=== PATIENT | female | born 1955 | race Caucasian/White ===

== ENCOUNTER 2016-07-01 05:45 | Day surgery (SDC) | payer BC ==
--- NOTE | ~2016-07-01 | EGD ---
EGD REPORT [facility] [address] [address] NAME: BRITTANY DWYER : [birth year] STATUS : [facility]#: [id number] AGE: 61 ADM/REG DATE : 07/01/16 MR#: [id number] REPORT SERV DATE: 07/07/16 DICTATED BY: ROB ZULUAGA DATE: 07/07/16 REPORT STATUS : Draft [facility]ANS[facility]IBED [facility]: [facility] DATE: 07/07/16 [facility] Patient Name: Brittany Dwyer Date of : 1955 Attending MD: ROB ZULUAGA MD Procedure Date No Time: 07/01/2016 Procedure: Colonoscopy Indications: High risk colon cancer surveillance: Personal history of colonic polyps, Last colonoscopy: March 2014 Referring MD: ALISA MONTEZ Medicines: See the Anesthesia note for documentation of the administered medications Complications: No immediate complications. Procedure: Pre-Anesthesia Assessment: - ASA Grade Assessment: III - A patient with severe systemic disease. After I obtained informed consent, the scope was passed under direct vision. Throughout the procedure, the patient's blood pressure, pulse, and oxygen saturations were monitored continuously. The [facility] H190L [id number] was introduced through the anus and advanced to the cecum, identified by appendiceal orifice and ileocecal valve. The colonoscopy was performed without difficulty. The patient tolerated the procedure well. The quality of the bowel preparation was fair. Findings: The perianal and digital rectal examinations were normal. Internal hemorrhoids were found during retroflexion and were small. Impression: - Internal hemorrhoids. Recommendation: - Patient has a contact number available for emergencies. The signs and symptoms of potential delayed complications were discussed with the patient. Return to normal activities tomorrow. Written discharge instructions were provided to the patient. - Regular diet. - Continue present medications. - Repeat colonoscopy in 1 year because the bowel preparation was suboptimal. Procedure Code(s): --- Professional --- 37968, Colonoscopy, flexible, proximal to splenic flexure; diagnostic, with or without collection of EGD REPORT [facility] [address] [place]. [address] NAME: BRITTANY DWYER : [birth year] STATUS : [facility] PAT#: [id number] AGE: 61 ADM/REG DATE : 07/01/16 MR#: [id number] REPORT SERV DATE: 07/07/16 DICTATED BY: ROB ZULUAGA DATE: 07/07/16 REPORT STATUS : Draft TRANSCRIBED BY: [employer] DATE: 07/07/16 specimen(s) by brushing or washing, with or without colon decompression (separate procedure) Diagnosis Code(s): --- Professional --- K64.8, Other hemorrhoids Z86.010, Personal history of colonic polyps CPT copyright 2013 [employer]. All rights reserved. The codes documented in this report are preliminary and upon neonatal icu coordinator review may be revised to meet current compliance requirements. Rob Zuluaga MD ROB ZULUAGA MD 07/01/2016 7:23 AM This report has been signed electronically. Number of Addenda: 0 Note Initiated On: 07/01/2016 7:04 AM Scope Withdrawal Time 0 hours 9 minutes 56 seconds [address] [place] [address]
--- NOTE | ~2016-07-01 | EGD ---
EGD REPORT [facility] [address] [address] NAME: BRITTANY DWYER : [birth year] STATUS : [facility] PAT#: [id number] AGE: 61 ADM/REG DATE : 07/01/16 MR#: [id number] REPORT SERV DATE: 07/01/16 DICTATED BY: ROB ZULUAGA DATE: 07/01/16 REPORT STATUS : Draft TRANSCRIBED BY: [employer] DATE: 07/01/16 [facility] Patient Name: Brittany Dwyer Date of : 1955 Attending MD: ROB ZULUAGA MD Procedure Date No Time: 07/01/2016 Procedure: Colonoscopy Indications: High risk colon cancer surveillance: Personal history of colonic polyps, Last colonoscopy: March 2014 Referring MD: ALISA MONTEZ Medicines: See the Anesthesia note for documentation of the administered medications Complications: No immediate complications. Procedure: Pre-Anesthesia Assessment: - ASA Grade Assessment: III - A patient with severe systemic disease. After I obtained informed consent, the scope was passed under direct vision. Throughout the procedure, the patient's blood pressure, pulse, and oxygen saturations were monitored continuously. The [facility] H190L [id number] was introduced through the anus and advanced to the cecum, identified by appendiceal orifice and ileocecal valve. The colonoscopy was performed without difficulty. The patient tolerated the procedure well. The quality of the bowel preparation was fair. Findings: The perianal and digital rectal examinations were normal. Internal hemorrhoids were found during retroflexion and were small. Impression: - Internal hemorrhoids. Recommendation: - Patient has a contact number available for emergencies. The signs and symptoms of potential delayed complications were discussed with the patient. Return to normal activities tomorrow. Written discharge instructions were provided to the patient. - Regular diet. - Continue present medications. - Repeat colonoscopy in 1 year because the bowel preparation was suboptimal. Procedure Code(s): --- Professional --- 09130, Colonoscopy, flexible, proximal to splenic flexure; diagnostic, with or without collection of EGD REPORT [facility] [address] [place]. [address] NAME: BRITTANY DWYER : [birth year] STATUS : [facility] PAT#: [id number] AGE: 61 ADM/REG DATE : 07/01/16 MR#: [id number] REPORT SERV DATE: 07/01/16 DICTATED BY: ROB ZULUAGA DATE: 07/01/16 REPORT STATUS : Draft TRANSCRIBED BY: [employer] DATE: 07/01/16 specimen(s) by brushing or washing, with or without colon decompression (separate procedure) Diagnosis Code(s): --- Professional --- K64.8, Other hemorrhoids Z86.010, Personal history of colonic polyps CPT copyright 2013 [employer]. All rights reserved. The codes documented in this report are preliminary and upon music writer review may be revised to meet current compliance requirements. Rob Zuluaga MD ROB ZULUAGA MD 07/01/2016 7:23 AM This report has been signed electronically. Number of Addenda: 0 Note Initiated On: 07/01/2016 7:04 AM Scope Withdrawal Time 0 hours 9 minutes 56 seconds [address] [facility] [facility] [place] [address]
--- NOTE | ~2016-07-01 | EGD ---
EGD REPORT [facility] [address] [address] NAME: BRITTANY DWYER : [birth year] STATUS : [facility]#: [id number] AGE: 61 ADM/REG DATE : 07/01/16 MR#: [id number] REPORT SERV DATE: 07/21/16 DICTATED BY: ROB ZULUAGA DATE: 07/21/16 REPORT STATUS : Draft [facility]ANSCRIBED [facility]: [facility] DATE: 07/21/16 [facility] Patient Name: Brittany Dwyer Date of : 1955 Attending MD: ROB ZULUAGA MD Procedure Date No Time: 07/01/2016 Procedure: Colonoscopy Indications: High risk colon cancer surveillance: Personal history of colonic polyps, Last colonoscopy: March 2014 Referring MD: ALISA MONTEZ Medicines: See the Anesthesia note for documentation of the administered medications Complications: No immediate complications. Procedure: Pre-Anesthesia Assessment: - ASA Grade Assessment: III - A patient with severe systemic disease. After I obtained informed consent, the scope was passed under direct vision. Throughout the procedure, the patient's blood pressure, pulse, and oxygen saturations were monitored continuously. The [facility] H190L [id number] was introduced through the anus and advanced to the cecum, identified by appendiceal orifice and ileocecal valve. The colonoscopy was performed without difficulty. The patient tolerated the procedure well. The quality of the bowel preparation was fair. Findings: The perianal and digital rectal examinations were normal. Internal hemorrhoids were found during retroflexion and were small. Impression: - Internal hemorrhoids. Recommendation: - Patient has a contact number available for emergencies. The signs and symptoms of potential delayed complications were discussed with the patient. Return to normal activities tomorrow. Written discharge instructions were provided to the patient. - Regular diet. - Continue present medications. - Repeat colonoscopy in 1 year because the bowel preparation was suboptimal. Procedure Code(s): --- Professional --- 88027, Colonoscopy, flexible, proximal to splenic flexure; diagnostic, with or without collection of EGD REPORT [facility] [address] [place]. [address] NAME: BRITTANY DWYER : [birth year] STATUS : [facility] PAT#: [id number] AGE: 61 ADM/REG DATE : 07/01/16 MR#: [id number] REPORT SERV DATE: 07/21/16 DICTATED BY: ROB ZULUAGA DATE: 07/21/16 REPORT STATUS : Draft TRANSCRIBED BY: [employer] DATE: 07/21/16 specimen(s) by brushing or washing, with or without colon decompression (separate procedure) Diagnosis Code(s): --- Professional --- K64.8, Other hemorrhoids Z86.010, Personal history of colonic polyps CPT copyright 2013 [employer]. All rights reserved. The codes documented in this report are preliminary and upon touch up painter hand review may be revised to meet current compliance requirements. Rob Zuluaga MD ROB ZULUAGA MD 07/01/2016 7:23 AM This report has been signed electronically. Number of Addenda: 0 Note Initiated On: 07/01/2016 7:04 AM Scope Withdrawal Time 0 hours 9 minutes 56 seconds [address] [facility] [place] [address]
[~2016-07-01 05:45] MED LIST: ANOROELLIPTA INH; COMBIVENT RESPIM4 GM INH; COZ25 PO; CRESTOR5 MG PO; EFFEX75 PO; LORT7 PO; METHOC500B PO; MUCINEX600 MG PO; NEUR800 PO; OXYCON40 PO; P125 PO; SINGULAIR1 PO
== END 2016-07-01 23:59 | disposition home or self-care (01) ==
LOC: DMU 05:45
PROVIDERS: Internal Medicine Gastroenterology
PROC: 0DJD8ZZ Inspection of Lower Intestinal Tract, Via Natural or Artificial Opening Endoscopic (ICD-10-PCS; principal; 2016-07-01 07:00)
DX: Z12.11 Encounter for screening for malignant neoplasm of colon (principal); K64.8 Other hemorrhoids; Z86.010 Personal history of colon polyps; I10 Essential (primary) hypertension; J44.9 Chronic obstructive pulmonary disease, unspecified; F41.9 Anxiety disorder, unspecified; F17.200 Nicotine dependence, unspecified, uncomplicated; Z88.5 Allergy status to narcotic agent; Z88.8 Allergy status to other drugs, medicaments and biological substances; F17.210 Nicotine dependence, cigarettes, uncomplicated; E78.00 Pure hypercholesterolemia, unspecified; Z90.710 Acquired absence of both cervix and uterus; Z98.890 Other specified postprocedural states; Z79.899 Other long term (current) drug therapy